=== PATIENT | female | born 1955 | race Caucasian/White ===

== ENCOUNTER 2025-04-27 16:22 | Emergency (ER) | payer MEDICARE, OTHER ==
[~2025-04-27] VITALS: Ht 180.3 cm; Wt 58.2 kg
--- NOTE | 2025-04-27 16:39 | ED.PDOC ---
History of Present Illness HPI Comments 69-year-old female with PMHX COPD presents with a chief complaint of syncope x 1530 this afternoon. Patient states that she was standing in line at [facility] and felt herself fainting. Patient denies hitting her head and states that she had a lapse in consciousness for roughly 5 seconds. Patient declined an ambulance at the restaurant. Patient ate food earlier today and denies any sick contacts at home. 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 Family History Family History: Reviewed,noncontributory to illness Social History Smoker: Cigarettes Alcohol: Denies ETOH Use Drugs: Denies Drug Use Lives In: Home Constitutional: denies: chills, diaphoresis, fatigue, fever, malaise, sweats, weakness, others EENTM: denies: blurred vision, double vision, ear bleeding, ear discharge, ear drainage, ear pain, ear ringing, eye pain, eye redness, hearing loss, mouth pain, mouth swelling, nasal discharge, nose bleeding, nose congestion, nose pain, photophobia, tearing, throat pain, throat swelling, voice changes, others Respiratory: denies: cough, hemoptysis, orthopnea, SOB at rest, shortness of breath, SOB with excertion, stridor, wheezing, others Cardiovascular: reports: syncope; denies: chest pain, dizzy spells, diaphoresis, Dyspnea on exertion, edema, irregular heart beat, left arm pain, lightheadedness, palpitations, PND, others Gastrointestinal: reports: nausea, vomiting; denies: abdomen distended, abdominal pain, blood streaked bowels, constipated, diarrhea, dysphagia, difficulty swallowing, hematemesis, melena, poor appetite, poor fluid intake, rectal bleeding, rectal pain, others Genitourinary: denies: abnormal vagina bleeding, burning, dyspareunia, dysuria, flank pain, frequency, hematuria, incontinence, pain, , vagina discharge, urgency, others Neurological: denies: dizziness, fainting, headache, left sided numbness, left sided weakness, numbness, paresthesia, pre-existing deficit, right sided numbness, right sided weakness, seizure, speech problems, tingling, tremors, weakness, others Musculoskeletal: denies: back pain, gout, joint pain, joint swelling, muscle pa in, muscle stiffness, neck pain, others Integumetry: denies: bruises, change in color, change in hair/nails, dryness, laceration, lesions, lumps, rash, wounds, others Allergic/Immunocompromised: denies: Difficulty Healing, Frequent Infections, Hives, Itching, others Hematologic/Lymphatic: denies: anemia, blood clots, easy bleeding, easy bruising, swollen glands, others Endocrine: denies: excessive hunger, excessive sweating, excessive thirst, excessive urination, flushing, intolerance to cold, intolerance to heat, unexplained weight gain, unexplained weight loss, others Psychiatric: denies: anxiety, bipolar disorder, depression, hopeless, panic disorder, schizophrenia, sleepless, suicidal, others All Other Systems: Reviewed and Negative Physical Exam General Appearance: Mild Distress HEENT: Pale Conjuntivae (L), Pale Conjuntivae (R), Pharynx Normal, TMs Normal Neck: Full Range of Motion, Non-Tender, Normal, Normal Inspection Respiratory: Chest Non-Tender, Lungs Clear, No Accessory Muscle Use, No Respiratory Distress, Normal Breath Sounds Cardiovascular: No Edema, No JVD, No Murmur, No Gallop, Normal Peripheral Pulses, Regular Rate/Rhythm Breast Exam: Deferred Gastrointestinal: No Organomegaly, Non Tender, No Pulsatile Mass, Normal Bowel Sounds, Soft Genitalia: Deferred Pelvic: Deferred Rectal: Deferred Extremities: No calf tenderness, Normal capillary refill, No pedal edema Musculoskeletal : Apperance: Normal Neurologic: Alert, lapeler II-XII nml as Tested, No Motor Deficits, Normal Affect, Normal Mood, No Sensory Deficits Cerebellar Function: Normal Reflexes: Normal Skin: Dry, Normal Color, Warm Lymphatic: No Adenopathy Was a procedure done? Was a procedure done?: No EKG EKG : Pulse Rate (adult): 93 [place]: RAD Cardiac Rhythm: NSR Differential Dx Considerations may include: Intracranial bleed, syncope, autonomic dysfunction, generalized weakness X-Ray, Labs, Meds, VS Vital Signs Date Time Temp Pulse Resp B/P (MAP) Pulse Ox O2 Delivery O2 Flow Rate FiO2 04/27/25 18:51 98.0 84 16 105/64 (78) 95 98.0 04/27/25 17:32 79 16 113/65 (81) 95 04/27/25 16:51 93 04/27/25 16:40 97.8 92 21 100/59 96 97.8 Lab Test 04/27/25 17:04 Range/Units White Blood Count 8.0 4.4-10.8 10^3/uL Red Blood Count 4.97 4.0-5.20 10^6/uL Hemoglobin 15.3 12.2-16.2 g/dL Hematocrit 46.5 H 36.0-46.0 % Mean Corpuscular Volume 93.5 80.0-100.0 fL Mean Corpuscular Hemoglobin 30.8 28.0-32.0 pg Mean Corpuscular Hemoglobin Concent 32.9 32.0-36.0 g/dL Red Cell Distribution Width 15.6 H 11.8-14.3 % Platelet Count 194 140-450 10^3/uL Mean Platelet Volume 8.8 6.9-10.8 fL Neutrophils (%) (Auto) 71.0 37.0-80.0 % Lymphocytes (%) (Auto) 19.9 10.0-50.0 % Monocytes (%) (Auto) 8.8 0.0-12.0 % Eosinophils (%) (Auto) 0.1 0.0-7.0 % Basophils (%) (Auto) 0.2 0.0-2.0 % Neutrophils # (Auto) 5.7 1.6-8.6 10 ^3/uL Lymphocytes # (Auto) 1.6 0.4-5.4 10 ^3/uL Monocytes # (Auto) 0.7 0-1.3 10 ^3/uL Eosinophils # (Auto) 0 0-0.8 10 ^3/uL Basophils # (Auto) 0 0-0.2 10 ^3/uL Nucleated Red Blood Cells 0.2 % Sodium Level 140 136-145 mmol/L Potassium Level 3.9 3.5-5.1 mmol/L Chloride Level 107 98-107 mmol/L Carbon Dioxide Level 25 20-31 mmol/L Anion Gap 8 5-15 Blood Urea Nitrogen 12 9-23 mg/dL Creatinine 1.80 H 0.550-1.02 mg/dL Glomerular Filtration Rate Calc 31 >90 mL/min BUN/Creatinine Ratio 6.7 L 10.0-20.0 Serum Glucose 126 H 74-106 mg/dL Calcium Level 10.3 8.7-10.4 mg/dL Current Medications Medications (Trade) Dose Ordered Sig/Van Route Start Time Stop Time Status Last Admin Sodium Chloride 500 ml @ 500 mls/hr Q1H ONCE IV 04/27/25 16:45 04/27/25 17:44 DC 04/27/25 17:25 Ondansetron HCl (Zofran) 4 mg ONCE ONCE IV 04/27/25 17:30 04/27/25 17:31 DC 04/27/25 17:29 CAT scan off the head shows: IMPRESSION: Extra-axial mass at the right vertex similar in attenuation to the adjacent sagittal sinus. This may represent a meningioma or a vascular malformation such as a dural venous AV fistula. Subtle serpiginous hyperdensity of the cortex extending inferolaterally from this location may represent a portion of this process or aging subarachnoid blood products. Further evaluation with MRI without and with contrast is recommended. Intracranial hemorrhage versus mass Critical Result: Intracranial hemorrhage versus mass The patient was given normal saline at 500 cc bolus The patient was given Zofran 4 mg IV push for the nausea. The CBC is within normal limits The chemistry panel shows a creatinine of 1.80 Because of the findings on the CAT scan we did contact [facility]. They have accepted the patient for transferred to their facility We discussed in detail the findings on the CAT scan with the patient and she is in agreement with the management in the transfer The patient will be transferred as a code 3 Images Reviewed?: Images reviewed and evaluated by me Time of 1ST Reevaluation: 17:03 Reevaluation 1ST: Improved Patient Education/Counseling: Diagnosis, Treatment, Prognosis Family Education/Counseling: No Family Present SEPSIS Sepsis Screen Physician Orders Urinalysis (04/27/25 16:38) Heplock Iv (04/27/25 16:38) [employer] (04/27/25 16:38) Blood Pressure (04/27/25 16:38) Pulse Oximetry (04/27/25 16:38) Electrocardigram (04/27/25 16:38) Head Without Contrast (04/27/25 16:38) Imaging Transfer Request (04/27/25 19:06) Vital Signs Date Time Temp Pulse Resp B/P (MAP) Pulse Ox O2 Delivery O2 Flow Rate FiO2 04/27/25 18:51 98.0 84 16 105/64 (78) 95 98.0 04/27/25 17:32 79 16 113/65 (81) 95 04/27/25 16:51 93 04/27/25 16:40 97.8 92 21 100/59 96 97.8 Laboratory Tests Test 04/27/25 17:04 White Blood Count 8.0 10^3/uL (4.4-10.8) Medications Medications Dose Ordered Sig/Van Route Start Time Stop Time Status Last Admin Dose Admin Ondansetron HCl 4 mg ONCE ONCE IV 04/27/25 17:30 04/27/25 17:31 DC 04/27/25 17:29 Sodium Chloride 500 ml @ 500 mls/hr Q1H ONCE IV 04/27/25 16:45 04/27/25 17:44 DC 04/27/25 17:25 Departure 1 Departure Time of Disposition: 19:02 Impression: Primary Impression: Intracranial mass Additional Impression: Episode of syncope Qualified Codes: R55 - Syncope and collapse Disposition: 51 HOSPICE/MEDICAL FACILITY Condition: Fair Critical Care Note Critical Care Time?: Yes (45 min-critical care time only) Stability Stability form required: Yes Stable for transfer: Intended for transfer, To designated facility Heart Score Heart Score: Heart Score Response (Comments) Value History N/A 0 EKG N/A 0 Age N/A 0 Risk Factors N/A 0 Troponin N/A 0 Total 0 I personally scribed for JUANCARLOS PETIT MD ([email or web address]) on 04/27/25 at 16:39. Electronically submitted by Jose Li ([email or web address]). JUANCARLOS PETIT MD Apr 27, 2025 16:39
[2025-04-27] MEDS: SODIUM CHLORIDE 0.9% 500 ML IV ONE (17:25)
[2025-04-27] MEDS: ONDANSETRON HCL 4 MG/2 ML VIAL IV ONE (17:29)
[2025-04-27] MEDS: ONDANSETRON HCL 4 MG/2 ML VIAL ONE (17:29)
[2025-04-27 17:33] LABS: Potassium 3.9 mmol/L (3.5-5.1); Sodium 140 mmol/L (136-145)
[2025-04-27 17:34] LABS: Anion Gap 8 (5-15); Calcium 10.3 mg/dL (8.7-10.4); Carbon Dioxide 25 mmol/L (20-31)
[2025-04-27 17:39] LABS: BUN/Creatinine Ratio 6.7 (10.0-20.0); Blood Urea Nitrogen 12 mg/dL (9-23)
[2025-04-27 17:42] LABS: Hematocrit 46.5 % (36.0-46.0); Hemoglobin 15.3 g/dL (12.2-16.2); Mean Corpuscular Hemoglobin 30.8 pg (28.0-32.0); Mean Corpuscular Volume 93.5 fL (80.0-100.0); Nucleated Red Blood Cells % 0.2 %
[2025-04-27 18:04] LABS: Chloride 107 mmol/L (98-107); Glucose 126 mg/dL (74-106)
--- NOTE | 2025-04-27 18:30 | DVH ---
COMPUTERIZED TOMOGRAPHY OF THE HEAD WITHOUT CONTRAST REASON FOR STUDY: syncope COMPARISON: None TECHNIQUE: Helical tomographic scans were obtained through the brain. 2-D coronal and sagittal refor matted images are provided. Radiation optimization: All CT scans at this facility use at least one of these dose optimization techniques: Automated exposure control mA and/or kV adjustment per patient s ize (includes targeted exams where dose is matched to clinical indication) or iterative reconstructio n. RADIATION DOSE: CTDI: 53.55 mGy DLP: 1055.35 mGy-cm FINDINGS: No loss of jacques-white differentiation to suggest acute ischemic infarct. There is no midli ne shift. There is mild diffuse cerebral atrophy with associated compensatory enlargement of the vent ricular system. There is a prominent perivascular space inferior to the right basal ganglia. There is a 1.2 x 1.6 x 1.3 cm hyperdense extra-axial mass at the vertex of the superomedial posterior right f rontal lobe, that is similar in attenuation to the adjacent sagittal sinus. There is also subtle serp iginous hyperdensity of the cortex extending from this location inferolaterally. There is no hydrocep halus. The suprasellar cistern is intact. The calvarium is intact. The visualized mastoid air cells a nd paranasal sinuses are clear. IMPRESSION: Extra-axial mass at the right vertex similar in attenuation to the adjacent sagittal sinus. This may represent a meningioma or a vascular malformation such as a dural venous AV fistula. Subtle serpigin ous hyperdensity of the cortex extending inferolaterally from this location may represent a portion o f this process or aging subarachnoid blood products. Further evaluation with MRI without and with con trast is recommended. Intracranial hemorrhage versus mass Critical Result: Intracranial hemorrhage versus mass Findings discussed with Dr. Linder at 04/27/2025 06:23 PM, and acknowledged receipt and understanding of the findings. #CRITICAL#
[2025-04-27 19:30] VITALS: PULSE 92; RESP 12; O2SAT 94
[2025-04-27] MEDS: levETIRAcetam 1000 mg/100ml 100 ML IV ONE (20:12)
[2025-04-27 20:18] VITALS: BP 115/77; PULSE 67; RESP 12; TEMP 99.6; O2SAT 94
--- NOTE | 2025-04-29 08:01 | ECG ---
[facility] [place] Test Date: 2025-04-27 Test Time: 16:51:24 Pat Name: LC JOHNSON Department: er Room: Gender: F Grades 6 Through 8 Teacher: sylvain : 1955 Requested By: JUANCARLOS PETIT Order Number: [id number] Reading MD: Amauri Finch Measurements Intervals Premium Rate: 93 P: 79 CT: 113 QRS: 96 QRSD: 91 T: 18 QT: 364 QTc: 453 Interpretive Statements Sinus rhythm Borderline short CT interval Right axis deviation Nonspecific repol abnormality, diffuse leads Electronically Signed On 05-05-2025 13:59:21 PDT by Amauri Finch Please click the below link to view image of tracing.
== END 2025-04-27 18:50 | disposition short-term general hospital (02) ==
LOC: ER 16:22
DX: R22.0 Localized swelling, mass and lump, head (principal); R55 Syncope and collapse; F17.210 Nicotine dependence, cigarettes, uncomplicated; J44.9 Chronic obstructive pulmonary disease, unspecified
CPT/HCPCS: 36415; 70450; 80048; 82947; 85025; 93005; 96374; 96375; 99285; J1953; J2405; J7040; 96361